=== PATIENT | female | born 1980 | race Caucasian/White ===

== ENCOUNTER → 2016-08-06 | Outpatient (CLI) | payer BC ==
[~2016-08-06] MED LIST: ADVOCARE PO; FAMO10TA43 PO; LACT1CAP72 PO; LORA10CA PO
== END ==
LOC: PREOP 05:49
PROVIDERS: ATTEND Surgery
DX: Z01.818 Encounter for other preprocedural examination (principal); R19.7 Diarrhea, unspecified; Z83.71 Family history of colonic polyps

== ENCOUNTER 2016-08-20 05:39 | Outpatient (CLI) | payer BC ==
[~2016-08-20] VITALS: Ht 172.7 cm; Wt 65.3 kg
[~2016-08-20 05:39] MED LIST changes: -LACT1CAP72 PO
[2016-08-20] MEDS ORDERED: LACT1CAP72 PO (12:26)
== END 2016-08-20 12:28 ==
LOC: PREOP 05:39
PROVIDERS: ATTEND Surgery
DX: Z01.818 Encounter for other preprocedural examination (principal); Z83.71 Family history of colonic polyps

== ENCOUNTER 2016-08-24 07:09 | Day surgery (SDC) | payer BC ==
[~2016-08-24] VITALS: Ht 172.7 cm; Wt 65.3 kg
[~2016-08-24 07:09] MED LIST changes: +LACT1CAP72 PO; +NS IV 500 ML 500 ML IV PRN
[2016-08-24] MEDS ORDERED: FLUMAZENIL (ROMAZICON) 0.1 MG/ML 5 ML VIAL INJ PRN (07:15)
[2016-08-24] MEDS ORDERED: NALOXONE 0.4 MG/ML 1 ML (NARCAN) VIAL IVP PRN (07:15)
[2016-08-24 07:41] VITALS: BP 114/82
--- NOTE | 2016-08-24 08:08 | Pre-Op Note & Conscious Sedat ---
Pre-Operative Progress Note H&P Reviewed The H&P was reviewed, patient examined and no changes noted. Date H&P Reviewed: Aug 24, 2016 Time H&P Reviewed: 08:08 Pre-Op Diagnosis: diarrhea. Family history of colon cancer and polyps Conscious Sedation Pre-Proced ASA Class: 1 Airway Mallampati Classification: ([place] appropriate class) I. II. III, IV Lungs Heart ASA score ASA 1: a normal healthy patient ASA 2: a patient with a mild systemic disease (mid diabetes, controlled hypertension, obesity ASA 3: a patient with a severe systemic disease that limits activity (angina , COPD, prior Myocardial infarction) ASA 4: a patient with an incapacitating disease that is a constant threat to life (CHF, renal failure) ASA 5: a moribund patient not expected to survive 24 hrs. (ruptured aneurysm) ASA 6: a declared brain patient whose organs are being harvested. For emergent operations, add the letter E after the classification Grade 1 Sedation Plan: Discussed options with patient/fam Note The patient is an appropriate candidate to undergo the planned procedure, sedation, and anesthesia. The patient immediately re-assessed prior to indication. NEGIN ARAYA MD Aug 24, 2016 8:08 am
[2016-08-24] MEDS ORDERED: fentaNYL INJECTION 100 MCG/2 ML AMP ONE ×2 (08:22)
[2016-08-24] MEDS ORDERED: MIDAZOLAM 2 MG/2 ML (VERSED) VIAL ONE ×4 (08:22→08:23)
[2016-08-24] MEDS: fentaNYL INJECTION 100 MCG/2 ML AMP IVP PRN ×2 (08:24→08:27)
[2016-08-24] MEDS: MIDAZOLAM 2 MG/2 ML (VERSED) VIAL IVP PRN ×3 (08:25→08:32)
--- NOTE | 2016-08-24 08:47 | Discharge Inst-Simple/Standard ---
Discharge Inst-Standard Discharge Medications New, Converted or Re-Newed RX: Other Patient Instructions/Follow Up Plan of Care/Instructions/FU: repeat colonoscopy in 5 years Activity as Tolerated: Yes Discharge Diet: No Restrictions NEGIN RAAYA MD Aug 24, 2016 8:47 am
--- NOTE | 2016-08-24 08:47 | Progress Note-Post Operative ---
Post-Operative Progess Note Pre-Operative Diagnosis diarrhea. Family history of colon cancer and polyps Post-Operative Diagnosis normal exam Post-Op Procedure Note Date of Procedure: Aug 24, 2016 Name of Procedure: colonoscopy to cecum Anesthesia Type sedation NEGIN ARAYA MD Aug 24, 2016 8:47 am
[2016-08-24 09:10] VITALS: BP 97/62
[2016-08-24 09:40] VITALS: BP 102/70
[2016-08-24 09:50] VITALS: BP 102/70
--- NOTE | 2016-08-24 10:11 | PROCEDURE REPORT ---
PROCEDURE PHYSICIAN: NEGIN ARAYA DATE OF PROCEDURE: 08/24/2016 PROCEDURE: Colonoscopy. SURGEON: Gerardo. INDICATION FOR THE PROCEDURE: This lady came in for colonoscopy to evaluate diarrhea and on the basis of a family history of colon cancer with polyps. Informed consent was obtained after reviewing the procedure in detail. DESCRIPTION OF PROCEDURE: She was placed in left lateral decubitus position and her vital signs were monitored. Conscious sedation was achieved using Versed and fentanyl. Digital rectal examination was unremarkable. The colonoscope was then introduced into the rectum and advanced all the way up to the cecum. The quality of bowel preparation was reasonable. The scope was then withdrawn slowly and the mucosa examined in a systematic fashion. There was no abnormality. She tolerated the procedure well and was taken back to the nursing area in a stable condition. IMPRESSION: 1. Normal colonoscopy. 2. Positive family history. 3. Recommend repeating in 5 years. Job ID: [id number] Dictated Date: 08/24/2016 08:46:23 Sld Educational Aide Date: 08/24/2016 10:07:40 / bobbi STONE
== END 2016-08-24 09:50 | disposition home or self-care (01) ==
LOC: ENDO 07:09
PROVIDERS: ATTEND Surgery
DX: R19.7 Diarrhea, unspecified (principal); Z80.0 Family history of malignant neoplasm of digestive organs

== ENCOUNTER → 2018-11-18 | Outpatient (CLI) | payer BC ==
[~2018-11-18] MED LIST changes: -NS IV 500 ML 500 ML IV PRN
[2018-11-18 15:08] LABS: BAND NEUTROPHILS 3 %; LYMPHOCYTES % (MANUAL) 23 %; MONOCYTES % (MANUAL) 5 %; NEUTROPHILS % (MANUAL) 69 %; RBC MORPH NORMAL
== END ==
LOC: LABNPT 15:04
PROVIDERS: ATTEND Nurse Practitioner Family
DX: D69.6 Thrombocytopenia, unspecified (principal)
CPT/HCPCS: 85007

== ENCOUNTER 2019-02-08 08:43 | Day surgery (SDC) | payer BC ==
[2019-02-08] VITALS (11 sets, daily range): BP systolic 104–146; BP diastolic 72–87
[~2019-02-08] VITALS: Ht 172.7 cm; Wt 65.3 kg
[2019-02-08 09:09] LABS: ABSOLUTE RETIC # 32 10e9/L (24-90); BASOPHILS % (AUTO) 0 % (0-10); EOSINOPHILS # (AUTO) 0.1 10^3/uL (0.0-0.3); EOSINOPHILS % (AUTO) 3 % (0-10); HEMATOCRIT 42 % (35-52); HEMOGLOBIN 13.7 G/DL (11.5-16.0); LYMPHOCYTES # (AUTO) 1.6 X 10^3 (1.0-4.0); LYMPHOCYTES % (AUTO) 36 % (12-44); MEAN CORPUSCULAR HEMOGLOBIN 29 PG (25-34); MEAN CORPUSCULAR HGB CONC 32 G/DL (32-36); MEAN CORPUSCULAR VOLUME 90 FL (80-99); MEAN PLATELET VOLUME 11.7 FL (7.4-10.4); MONOCYTES # (AUTO) 0.4 X 10^3 (0.0-1.0); MONOCYTES % (AUTO) 9 % (0-12); NEUTROPHILS # (AUTO) 2.3 X 10^3 (1.8-7.8); NEUTROPHILS % (AUTO) 53 % (42-75); PLATELET COUNT 52 10^3/uL (130-400); RED CELL DISTRIBUTION WIDTH 12.4 % (10.0-14.5); RETICULOCYTE % 0.68 % (0.50-2.40); WHITE BLOOD COUNT 4.4 10^3/uL (4.3-11.0)
--- OUTSIDE RECORDS SUMMARY | 2019-02-08 09:19 | XMS REPORT | Continuity of Care Document ---
Demographics Preferred Language Unknown Marital Status Unknown Voodoo Affiliation Unknown Race Unknown Ethnic Group Unknown Author Organization Unknown Address Unknown Allergies Active Description Code Type Severity Reaction Onset Reported/Identified Relationship to Patient Clinical Status Yes NO KNOWN DRUG ALLERGIES UNKNOWN NO KNOWN DRUG ALLERG Yes No Known Drug Allergies [id number] Drug Allergy Unknown N/A 05/15/2008 Medications There is no data. Problems Date Dx Coded Attending Type Code Diagnosis Diagnosed By 08/14/2014 QUIANA DODSON, NEGIN Isaac Ot 530.10 08/14/2014 QUIANA DODSON, NEGIN Isaac Ot 531.90 08/14/2014 QUIANA DODSON, NEGIN Isaac Ot 530.10 08/14/2014 QUIANA DODSON, NEGIN Isaac Ot 531.90 09/05/2014 QUIANA DODSON, NEGIN Isaac Ot 530.10 09/05/2014 QUIANA DODSON, NEGIN Isaac Ot 531.90 11/14/2014 QUIANA DODSON, NEGIN Isaac Ot V72.84 11/19/2014 QUIANA DODSON, NEGIN Isaac Ot 530.10 11/19/2014 QUIANA DODSON, NEGIN Isaac Ot 531.90 12/22/2014 CARL GARCIA SECOND VP HR ASSESSMENT Ot 241.0 12/22/2014 CARL GARCIA SECOND VP HR ASSESSMENT Ot 789.00 01/21/2015 QUIANA DODSON, NEGIN Isaac Ot 530.10 01/21/2015 QUIANA DODSON, NEGIN Isaac Ot 535.50 06/30/2016 NEGIN ARAYA MD Ot R53.83 OTHER FATIGUE 07/08/2016 NEGIN ARAYA MD Ot R53.83 OTHER FATIGUE 08/07/2016 NEGIN ARAYA MD Ot R19.7 DIARRHEA, UNSPECIFIED 08/07/2016 NEGIN ARAYA MD Ot Z01.818 ENCOUNTER FOR OTHER PREPROCEDURAL EXAMIN 08/07/2016 NEGIN ARAYA MD Ot Z83.71 FAMILY HISTORY OF COLONIC POLYPS 08/21/2016 NEGIN ARAYA MD Ot Z01.818 ENCOUNTER FOR OTHER PREPROCEDURAL EXAMIN 08/21/2016 NEGIN ARAYA MD Ot Z83.71 FAMILY HISTORY OF COLONIC POLYPS 08/24/2016 QUIANA DODSON, NEGIN Isaac Ot R19.7 DIARRHEA, UNSPECIFIED 08/24/2016 QUIANA DODSON, NEGIN Isaac Ot Z80.0 FAMILY HISTORY OF MALIGNANT NEOPLASM OF 08/25/2016 QUIANA DODSON, NEGIN Isaac Ot R19.7 DIARRHEA, UNSPECIFIED 08/25/2016 QUIANA DODSON, NEGIN Isaac Ot Z80.0 FAMILY HISTORY OF MALIGNANT NEOPLASM OF 08/26/2016 QUIANA DODSON, NEGIN Isaac Ot Z01.818 ENCOUNTER FOR OTHER PREPROCEDURAL EXAMIN 08/26/2016 QUIANA DODSON, NEGIN Isaac Ot Z83.71 FAMILY HISTORY OF COLONIC POLYPS 03/15/2018 LUIS MIGUEL GIBBS W 300.00 ANXIETY STATE, UNSPECIFIED 03/15/2018 LUIS MIGUEL GIBBS W F41.9 ANXIETY DISORDER, UNSPECIFIED 03/15/2018 LUIS MIGUEL GIBBS W 300.00 ANXIETY STATE, UNSPECIFIED 03/15/2018 LUIS MIGUEL GIBBS W F41.9 ANXIETY DISORDER, UNSPECIFIED 03/16/2018 LUIS MIGUEL GIBBS W 300.00 ANXIETY STATE, UNSPECIFIED 03/16/2018 LUIS MIGUEL GIBBS W F41.9 ANXIETY DISORDER, UNSPECIFIED 03/16/2018 LUIS MIGUEL GIBBS W V70.0 ROUTINE GENERAL MEDICAL EXAMINATION AT A HEALTH CARE FACILITY 03/16/2018 LUIS MIGUEL GIBBS W Z00.00 ENCOUNTER FOR GENERAL ADULT MEDICAL EXAMINATION WITHOUT ABNORMAL FINDINGS 03/16/2018 LUIS MIGUEL GIBBS W 300.00 ANXIETY STATE, UNSPECIFIED 03/16/2018 LUIS MIGUEL GIBBS F41.9 ANXIETY DISORDER, UNSPECIFIED 03/16/2018 LUIS MIGUEL GIBBS W V70.0 ROUTINE GENERAL MEDICAL EXAMINATION AT A HEALTH CARE FACILITY 03/16/2018 LUIS MIGUEL GIBBS Z00.00 ENCOUNTER FOR GENERAL ADULT MEDICAL EXAMINATION WITHOUT ABNORMAL FINDINGS 10/20/2018 Sher Newman 473.9 UNSPECIFIED SINUSITIS (CHRONIC) 10/20/2018 Sher Newman J32.9 CHRONIC SINUSITIS, UNSPECIFIED 11/17/2018 LUIS MIGUEL GIBBS W 535.50 UNSPECIFIED GASTRITIS AND GASTRODUODENITIS, WITHOUT MENTION OF HEMORRHAGE 11/17/2018 LUIS MIGUEL GIBBS W 780.60 FEVER, UNSPECIFIED 11/17/2018 LUIS MIGUEL GIBBS K29.70 GASTRITIS, UNSPECIFIED, WITHOUT BLEEDING 11/17/2018 LUIS MIGUEL GIBBS R50.9 FEVER, UNSPECIFIED 11/17/2018 LUIS MIGUEL GIBBS W 535.50 UNSPECIFIED GASTRITIS AND GASTRODUODENITIS, WITHOUT MENTION OF HEMORRHAGE 11/17/2018 LUIS MIGUEL GIBBS W 780.60 FEVER, UNSPECIFIED 11/17/2018 LUIS MIGUEL GIBBS K29.70 GASTRITIS, UNSPECIFIED, WITHOUT BLEEDING 11/17/2018 LUIS MIGUEL GIBBS R50.9 FEVER, UNSPECIFIED 11/22/2018 MADISYN RODRIGUEZ SECOND VP HR ASSESSMENT Ot D69.6 THROMBOCYTOPENIA, UNSPECIFIED 11/30/2018 MADISYN RODRIGUEZ SECOND VP HR ASSESSMENT Ot D69.6 THROMBOCYTOPENIA, UNSPECIFIED 01/05/2019 CALE DODSON, JUSTINA Ot D69.6 THROMBOCYTOPENIA, UNSPECIFIED 02/02/2019 JUSTINA MADSEN MD Ot D69.6 THROMBOCYTOPENIA, UNSPECIFIED Procedures There is no data. Results Test Result Range THYROID STIMULATING HORMONE - 06/29/16 15:58 THYROID STIMULATING HORMONE 1.23 u[iU]/mL 0.35-4.94 EKG - 03/15/18 14:29 EKG Complete Thyroid Stimulating Hormone - 03/16/18 07:47 TSH 1.86 mIU/mL 0.32-5.00 CMV Abs IgG/IgM - 11/17/18 11:50 Cytomegalovirus (CMV) Ab, IgG >10.00 U/mL 0.00-0.59 Cytomegalovirus (CMV) Ab, IgM <30.0 AU/mL 0.0-29.9 EBV Ab VCA, IgG - 11/17/18 11:50 EBV Ab VCA, IgG >600.0 U/mL 0.0-17.9 Peripheral Smear - 11/17/18 11:50 Peripheral smear Sent to [facility] Pathology for review CMV Abs IgG/IgM - 11/17/18 11:50 CYTOMEGALOVIRUS (CMV) AB, IGG >10.00 U/ML 0.00-0.59 CYTOMEGALOVIRUS (CMV) AB, IGM <30.0 AU/ML 0.0-29.9 EBV Ab VCA, IgG - 11/17/18 11:50 EBV AB VCA, IGG >600.0 U/ML 0.0-17.9 Blood manual differential performed detection - 11/17/18 11:50 Blood monocytes/100 leukocytes 5 % NRG Manual blood segmented neutrophils/100 leukocytes 69 % NRG Blood band neutrophils/100 leukocytes 3 % NRG Manual blood lymphocytes/100 leukocytes 23 % NRG Blood erythrocyte morphology finding identification NORMAL NRG EBV Ab VCA, IgM - 11/17/18 11:50 EBV Ab VCA, IgM <36.0 U/mL 0.0-35.9 CBC with Auto Diff - 11/28/18 08:50 Baso% 0.30 % 0.00-2.50 Eos 0.1 K/uL 0.0-0.7 Eos% 1.4 % 0.0-7.0 Hct 40.7 % 36.0-46.0 Hgb 13.4 g/dL 13.0-15.0 Lym 1.50 K/uL 0.60-3.40 Lym% 23.0 % 10.0-50.0 MCH 30.2 pg 27.0-31.0 MCHC 32.9 g/dL 32.0-36.0 MCV 91.9 fL 80.0-97.0 [place]ike% 6.6 % 0.0-12.0 MPV 13.1 fL 7.4-10.0 [place]% 68.7 % 37.0-80.0 Plt 64 K/uL 150-400 RBC 4.43 M/uL 3.60-5.00 RDW 12.3 % 11.6-14.8 WBC 6.53 K/uL 5.00-10.00 [place] 4.49 K/uL 2.00-6.90 Pike 0.4 K/uL 0.0-0.9 Baso 0.0 K/uL 0.0-0.2 Urine Culture - 11/28/18 08:50 PRELIM CULTURE RESULTS 50,000-100,000 Gram Negative Lactose Union Contract Representative TOR / ID to Follow MEDIA PLATED Setup at 14:40 on 11/28/2018 CULTURE SOURCE urine Sensi - 11/28/18 08:50 FINAL CULTURE RESULTS Escherichia coli (Isolate 1) Ampicillin/Sulbactam <=8/4 Ampicillin <=8 Amoxicillin/K Clavulanate <=8/4 Ceftriaxone <=8 Ciprofloxacin <=1 Nitrofurantoin <=32 Gentamicin <=4 Levofloxacin <=2 Trimethoprim/ Sulfamethoxazole <=2/38 Tetracycline <=4 Amikacin <=16 Aztreonam <=8 Ceftazidime <=1 Ceftazidime/K Clavulanate <=0.25 Cephalothin <=8 Cefotaxime <=2 Cefotaxime/K Clavulanate <=0.5 Cefoxitin <=8 Cefazolin <=8 Cefepime <=8 Cefuroxime <=4 Ertapenem <=1 Imipenem <=4 Meropenem <=4 Piperacillin/Tazobactam <=16 Piperacillin <=16 Tigecycline <=2 Tobramycin <=4 Blood CBC with ordered manual differential panel - 02/02/19 08:53 Blood leukocytes automated count (number/volume) 4.3 10*3/uL 4.3-11.0 Blood erythrocytes automated count (number/volume) 4.71 10*6/uL 4.35-5.85 Venous blood hemoglobin measurement (mass/volume) 13.9 g/dL 11.5-16.0 Blood hematocrit (volume fraction) 42 % 35-52 Automated erythrocyte mean corpuscular volume 90 [foz_us] 80-99 Automated erythrocyte mean corpuscular hemoglobin (mass per erythrocyte) 30 pg 25-34 Automated erythrocyte mean corpuscular hemoglobin concentration measurement (mass/volume) 33 g/dL 32-36 Automated erythrocyte distribution width ratio 12.5 % 10.0- 14.5 Automated blood platelet count (count/volume) 64 10*3/uL 130- 400 Automated blood platelet mean volume measurement 11.8 [foz_us] 7.4-10.4 Automated blood neutrophils/100 leukocytes 55 % 42-75 Automated blood lymphocytes/100 leukocytes 32 % 12-44 Blood monocytes/100 leukocytes 10 % NRG Automated blood eosinophils/100 leukocytes 2 % 0-10 Automated blood basophils/100 leukocytes 1 % 0-10 Blood neutrophils automated count (number/volume) 2.4 10*3 1.8-7.8 Blood lymphocytes automated count (number/volume) 1.4 10*3 1.0-4.0 Blood monocytes automated count (number/volume) 0.5 10*3 0.0- 1.0 Automated eosinophil count 0.1 10*3/uL 0.0-0.3 Automated blood basophil count (count/volume) 0.0 10*3/uL 0.0-0.1 Manual blood segmented neutrophils/100 leukocytes 60 % NRG Blood band neutrophils/100 leukocytes 0 % NRG Manual blood lymphocytes/100 leukocytes 26 % NRG Manual eosinophils/100 leukocytes in nose 3 % NRG Manual blood basophils/100 leukocytes 1 % NRG Blood erythrocyte morphology finding identification NORMAL NRG Automated reticulocyte percentage - 02/02/19 08:53 Blood reticulocytes count (number/volume) 40 10*9/L 24-90 Blood reticulocytes/100 erythrocytes 0.85 % 0.50-2.40 Encounters ACCT No. Visit Date/Time Discharge Status Pt. Type Provider Facility Loc./Unit Complaint [id number] 11/24/2018 07:15:00 Document Registration [id number] 11/28/2018 10:40:00 11/28/2018 23:59:00 DIS Outpatient UNLISTEDTAMIKO [id number] 11/25/2018 09:25:00 11/25/2018 23:59:00 DIS Outpatient Peyton Rodriguez [id number] 11/17/2018 13:10:00 11/17/2018 23:59:00 DIS Outpatient LUIS MIGUEL GIBBS [id number] 11/17/2018 11:50:00 11/17/2018 23:59:00 DIS Outpatient Peyton Rodriguez [id number] 10/20/2018 09:03:00 10/20/2018 23:59:00 DIS Outpatient Sher Newman [id number] 03/16/2018 07:45:00 03/16/2018 23:59:00 DIS Outpatient LUIS MIGUEL GIBBS [id number] 03/15/2018 14:25:00 03/15/2018 23:59:00 DIS Outpatient LUIS MIGUEL GIBBS [id number] 02/02/2019 10:50:00 02/02/2019 23:59:59 CLS Preadmit JUSTINA MADSEN MD [facility] SDC THROMBOCYTOPENIA [id number] 02/02/2019 08:27:00 02/02/2019 23:59:59 CLS Outpatient JUSTINA MASDEN MD [facility] ONC [id number] 11/18/2018 15:04:00 11/18/2018 23:59:59 CLS Outpatient MADISYN RODRIGUEZ [facility] LABNPT PERIPHERAL SMEAR [id number] 08/24/2016 07:09:00 08/24/2016 09:50:00 DIS Outpatient NEGIN ARAYA MD [facility] ENDO FAMILY HISTORY POLYPS [id number] 08/20/2016 05:39:00 08/20/2016 12:28:00 DIS Outpatient NEGIN ARAYA MD [facility] PREOP FAMILY HISTORY [id number] 08/06/2016 05:49:00 08/06/2016 23:59:59 CLS Outpatient NEGIN ARAYA MD [facility] PREOP FAMILY HISTORY POLYPS [id number] 06/29/2016 15:46:00 06/29/2016 23:59:59 CLS Outpatient NEGIN ARAYA MD [facility] LAB FATIGUE [id number] 01/21/2015 06:50:00 01/21/2015 09:35:00 DIS Outpatient NEGIN ARAYA MD [facility] [id number] 01/16/2015 07:07:00 01/16/2015 23:59:59 CLS Outpatient NEGIN ARAYA MD [facility] PREOP [id number] 11/20/2014 10:40:00 11/20/2014 23:59:59 CLS Outpatient CARL GARCIA [facility] RAD [id number] 08/13/2014 11:02:00 08/13/2014 23:59:59 CLS Outpatient NEGIN ARAYA MD [facility] [id number] 08/08/2014 05:50:00 08/08/2014 23:59:59 CLS Outpatient NEGIN ARAYA MD [facility] PREOP [id number] 02/28/2013 06:56:00 02/28/2013 11:50:00 DIS Outpatient [id number] 02/23/2013 08:06:00 02/23/2013 23:59:59 CLS Outpatient [id number] 09/21/2014 08:49:00 Document Registration [id number] 09/21/2014 08:49:00 Document Registration [id number] 11/19/2018 06:14:00 Document Registration
[2019-02-08 09:28] LABS: PROTHROMBIN TIME PATIENT 13.2 SEC (12.2-14.7)
[2019-02-08] MEDS ORDERED: NS IV 1000 ML 1,000 ML IV STA (10:50)
[2019-02-08] MEDS ORDERED: LIDOCAINE 1% INJ 20 ML 20 ML VIAL ONE (10:52)
[2019-02-08] MEDS ORDERED: fentaNYL INJECTION 100 MCG/2 ML AMP ONE (10:52)
[2019-02-08] MEDS ORDERED: MIDAZOLAM 2 MG/2 ML (VERSED) VIAL ONE (10:52)
[2019-02-08] MEDS ORDERED: MIDAZOLAM 2 MG/2 ML (VERSED) VIAL IVP ONE (11:00)
[2019-02-08] MEDS ORDERED: fentaNYL INJECTION 100 MCG/2 ML AMP IVP ONE (11:00)
[2019-02-08] MEDS ORDERED: LIDOCAINE 1% INJ 20 ML 20 ML VIAL INJ ONE (11:00)
[2019-02-08 11:04] LABS: BAND NEUTROPHILS 0 %; BASOPHILS % (MANUAL) 2 %; EOSINOPHILS % (MANUAL) 1 %; LYMPHOCYTES % (MANUAL) 37 %; MONOCYTES % (MANUAL) 10 %; NEUTROPHILS % (MANUAL) 50 %; RBC MORPH NORMAL
--- NOTE | 2019-02-08 11:53 | Pre-Op Note & Conscious Sedat ---
Pre-Operative Progress Note H&P Reviewed The H&P was reviewed, patient examined and no changes noted. Date H&P Reviewed: Feb 08, 2019 Time H&P Reviewed: 10:00 Pre-Op Diagnosis: Thrombocytopenia Conscious Sedation Pre-Proced Time 10:00 ASA Score 2 For ASA 3 and 4: Consider anesthesia and medical clearance. Also, for patients with a history of failed moderate sedation consider anesthesia. Airway Lungs Heart ASA score ASA 1: a normal healthy patient ASA 2: a patient with a mild systemic disease (mid diabetes, controlled hypertension, obesity ASA 3: a patient with a severe systemic disease that limits activity (angina, COPD, prior Myocardial infarction) ASA 4: a patient with an incapacitating disease that is a constant threat to life (CHF, renal failure) ASA 5: a moribund patient not expected to survive 24 hrs. (ruptured aneurysm) ASA 6: a declared brain- patient whose organs are being harvested. For emergent operations, add the letter E after the classification Mallampati Classification Grade 2 Sedation Plan Analgesia, Amnesia, Plan communicated to team members, Discussed options with shelton lucero/fam, Discussed risks with patient/fam The patient is an appropriate candidate to undergo the planned procedure, sedation, and anesthesia. The patient immediately re-assessed prior to indication. ZARIE LESTER MD Feb 08, 2019 11:53
[2019-02-08] MEDS ORDERED: HYDROcodone/APAP 5 MG/325 MG (LORTAB) TAB PO PRN (12:00)
--- NOTE | 2019-02-08 13:23 | Diagnostic Imaging Report ---
INDICATION: Thrombocytosis. DETAILS OF PROCEDURE: Patient is brought to the CT suite and placed on table in the prone position. Axial imaging through the pelvis was performed to evaluate appropriate entry site. Procedure was performed utilizing conscious sedation with radiology nursing and constant patient monitoring. Patient was given a total of 50 mcg of fentanyl intravenously and 1 mg of Versed intravenously. Total procedure time is 9 minutes. Skin of the posterior pelvis was prepped and draped in usual sterile fashion. Small amount of 1% lidocaine was utilized for local anesthesia. A bone marrow biopsy needle was advanced and placed its tip adjacent to the posterior cortex of the right iliac bone. Needle was advanced through the cortex utilizing the bone marrow drill. Two bone marrow aspirates were obtained. Bone marrow core was then obtained. Needle was withdrawn. Hemostasis was obtained. Patient tolerated the procedure well and left the department in stable condition. IMPRESSION: Successful CT-guided bone marrow aspiration and biopsy, utilizing conscious sedation. Dictated by: Dictated on workstation # [id number]
== END 2019-02-08 13:50 | disposition home or self-care (01) ==
LOC: SDC 08:43
PROVIDERS: ATTEND Internal Medicine Hematology & Oncology
DX: D69.6 Thrombocytopenia, unspecified (principal); K21.9 Gastro-esophageal reflux disease without esophagitis; Z88.2 Allergy status to sulfonamides
CPT/HCPCS: 36415; 38222; 77012; 85007; 85027; 85045; 85610; 85730; 99156

== ENCOUNTER 2019-02-16 08:29 | Outpatient (RCR) | payer BC ==
[2018-12-21 15:32] LABS: BASOPHILS % (AUTO) 0 % (0-10); EOSINOPHILS # (AUTO) 0.1 10^3/uL (0.0-0.3); EOSINOPHILS % (AUTO) 1 % (0-10); HEMATOCRIT 41 % (35-52); HEMOGLOBIN 13.7 G/DL (11.5-16.0); LYMPHOCYTES # (AUTO) 1.6 X 10^3 (1.0-4.0); LYMPHOCYTES % (AUTO) 30 % (12-44); MEAN CORPUSCULAR HEMOGLOBIN 29 PG (25-34); MEAN CORPUSCULAR HGB CONC 33 G/DL (32-36); MEAN CORPUSCULAR VOLUME 87 FL (80-99); MEAN PLATELET VOLUME 11.4 FL (7.4-10.4); MONOCYTES # (AUTO) 0.5 X 10^3 (0.0-1.0); MONOCYTES % (AUTO) 8 % (0-12); NEUTROPHILS # (AUTO) 3.3 X 10^3 (1.8-7.8); NEUTROPHILS % (AUTO) 61 % (42-75); PLATELET COUNT 72 10^3/uL (130-400); RED CELL DISTRIBUTION WIDTH 12.5 % (10.0-14.5); WHITE BLOOD COUNT 5.5 10^3/uL (4.3-11.0)
[2018-12-21 15:44] LABS: PROTHROMBIN TIME PATIENT 13.5 SEC (12.2-14.7)
[2018-12-23 00:01] LABS: HEPATITIS C ANTIBODY C Non-Reactive (Non-Reactive)
[2019-01-18 09:14] LABS: BASOPHILS % (AUTO) 0 % (0-10); EOSINOPHILS # (AUTO) 0.1 10^3/uL (0.0-0.3); EOSINOPHILS % (AUTO) 2 % (0-10); HEMATOCRIT 40 % (35-52); HEMOGLOBIN 13.2 G/DL (11.5-16.0); LYMPHOCYTES # (AUTO) 1.6 X 10^3 (1.0-4.0); LYMPHOCYTES % (AUTO) 34 % (12-44); MEAN CORPUSCULAR HEMOGLOBIN 30 PG (25-34); MEAN CORPUSCULAR HGB CONC 33 G/DL (32-36); MEAN CORPUSCULAR VOLUME 89 FL (80-99); MEAN PLATELET VOLUME 11.4 FL (7.4-10.4); MONOCYTES # (AUTO) 0.4 X 10^3 (0.0-1.0); MONOCYTES % (AUTO) 9 % (0-12); NEUTROPHILS # (AUTO) 2.6 X 10^3 (1.8-7.8); NEUTROPHILS % (AUTO) 55 % (42-75); PLATELET COUNT 69 10^3/uL (130-400); RED CELL DISTRIBUTION WIDTH 12.7 % (10.0-14.5); WHITE BLOOD COUNT 4.7 10^3/uL (4.3-11.0)
[2019-02-02 09:09] LABS: ABSOLUTE RETIC # 40 10e9/L (24-90); BASOPHILS % (AUTO) 1 % (0-10); EOSINOPHILS # (AUTO) 0.1 10^3/uL (0.0-0.3); EOSINOPHILS % (AUTO) 2 % (0-10); HEMATOCRIT 42 % (35-52); HEMOGLOBIN 13.9 G/DL (11.5-16.0); LYMPHOCYTES # (AUTO) 1.4 X 10^3 (1.0-4.0); LYMPHOCYTES % (AUTO) 32 % (12-44); MEAN CORPUSCULAR HEMOGLOBIN 30 PG (25-34); MEAN CORPUSCULAR HGB CONC 33 G/DL (32-36); MEAN CORPUSCULAR VOLUME 90 FL (80-99); MEAN PLATELET VOLUME 11.8 FL (7.4-10.4); MONOCYTES # (AUTO) 0.5 X 10^3 (0.0-1.0); MONOCYTES % (AUTO) 11 % (0-12); NEUTROPHILS # (AUTO) 2.4 X 10^3 (1.8-7.8); NEUTROPHILS % (AUTO) 55 % (42-75); PLATELET COUNT 64 10^3/uL (130-400); RED CELL DISTRIBUTION WIDTH 12.5 % (10.0-14.5); RETICULOCYTE % 0.85 % (0.50-2.40); WHITE BLOOD COUNT 4.3 10^3/uL (4.3-11.0)
[2019-02-02 10:16] LABS: BAND NEUTROPHILS 0 %; BASOPHILS % (MANUAL) 1 %; EOSINOPHILS % (MANUAL) 3 %; LYMPHOCYTES % (MANUAL) 26 %; MONOCYTES % (MANUAL) 10 %; NEUTROPHILS % (MANUAL) 60 %; RBC MORPH NORMAL
[~2019-02-16 08:29] MED LIST changes: +LIDOCAINE 1% 20 ML (XYLOCAINE) VIAL CANCER CTR ONE
== END 2019-03-21 | disposition home or self-care (01) ==
LOC: ONC 08:29
PROVIDERS: ATTEND Internal Medicine Hematology & Oncology
DX: D69.6 Thrombocytopenia, unspecified (principal)
CPT/HCPCS: 36415; 38222; 80074; 83615; 85007; 85025; 85027; 85045; 85055; 85610; 85730; 86022; 86703; 99213; 99214

== ENCOUNTER 2019-04-27 08:36 | Outpatient (RCR) | payer BC ==
[~2019-04-27 08:36] MED LIST changes: -LIDOCAINE 1% 20 ML (XYLOCAINE) VIAL CANCER CTR ONE
[2019-04-27 08:45] LABS: BASOPHILS % (AUTO) 0 % (0-10); EOSINOPHILS # (AUTO) 0.1 10^3/uL (0.0-0.3); EOSINOPHILS % (AUTO) 2 % (0-10); HEMATOCRIT 41 % (35-52); HEMOGLOBIN 13.8 G/DL (11.5-16.0); LYMPHOCYTES # (AUTO) 1.5 X 10^3 (1.0-4.0); LYMPHOCYTES % (AUTO) 33 % (12-44); MEAN CORPUSCULAR HEMOGLOBIN 30 PG (25-34); MEAN CORPUSCULAR HGB CONC 34 G/DL (32-36); MEAN CORPUSCULAR VOLUME 89 FL (80-99); MEAN PLATELET VOLUME 11.6 FL (7.4-10.4); MONOCYTES # (AUTO) 0.4 X 10^3 (0.0-1.0); MONOCYTES % (AUTO) 9 % (0-12); NEUTROPHILS # (AUTO) 2.5 X 10^3 (1.8-7.8); NEUTROPHILS % (AUTO) 55 % (42-75); PLATELET COUNT 67 10^3/uL (130-400); RED CELL DISTRIBUTION WIDTH 12.3 % (10.0-14.5); WHITE BLOOD COUNT 4.5 10^3/uL (4.3-11.0)
== END 2019-07-26 | disposition home or self-care (01) ==
LOC: ONC 08:36
PROVIDERS: ATTEND Internal Medicine Hematology & Oncology
DX: D69.3 Immune thrombocytopenic purpura (principal); D69.6 Thrombocytopenia, unspecified
CPT/HCPCS: 36415; 85025; 99213

== ENCOUNTER 2019-08-31 13:08 | Outpatient (RCR) | payer BC ==
[2019-08-03 08:36] LABS: BASOPHILS % (AUTO) 1 % (0-10); EOSINOPHILS # (AUTO) 0.1 10^3/uL (0.0-0.3); EOSINOPHILS % (AUTO) 2 % (0-10); HEMATOCRIT 41 % (35-52); HEMOGLOBIN 13.7 G/DL (11.5-16.0); LYMPHOCYTES # (AUTO) 1.6 X 10^3 (1.0-4.0); LYMPHOCYTES % (AUTO) 39 % (12-44); MEAN CORPUSCULAR HEMOGLOBIN 29 PG (25-34); MEAN CORPUSCULAR HGB CONC 33 G/DL (32-36); MEAN CORPUSCULAR VOLUME 88 FL (80-99); MEAN PLATELET VOLUME 12.4 FL (7.4-10.4); MONOCYTES # (AUTO) 0.4 X 10^3 (0.0-1.0); MONOCYTES % (AUTO) 8 % (0-12); NEUTROPHILS # (AUTO) 2.1 X 10^3 (1.8-7.8); NEUTROPHILS % (AUTO) 50 % (42-75); PLATELET COUNT 43 10^3/uL (130-400); RED CELL DISTRIBUTION WIDTH 12.4 % (10.0-14.5); WHITE BLOOD COUNT 4.2 10^3/uL (4.3-11.0)
[2019-08-31 13:23] LABS: BASOPHILS % (AUTO) 0 % (0-10); EOSINOPHILS # (AUTO) 0.1 10^3/uL (0.0-0.3); EOSINOPHILS % (AUTO) 2 % (0-10); HEMATOCRIT 41 % (35-52); HEMOGLOBIN 13.6 G/DL (11.5-16.0); LYMPHOCYTES # (AUTO) 1.7 X 10^3 (1.0-4.0); LYMPHOCYTES % (AUTO) 38 % (12-44); MEAN CORPUSCULAR HEMOGLOBIN 29 PG (25-34); MEAN CORPUSCULAR HGB CONC 33 G/DL (32-36); MEAN CORPUSCULAR VOLUME 89 FL (80-99); MEAN PLATELET VOLUME 12.5 FL (7.4-10.4); MONOCYTES # (AUTO) 0.5 X 10^3 (0.0-1.0); MONOCYTES % (AUTO) 11 % (0-12); NEUTROPHILS # (AUTO) 2.3 X 10^3 (1.8-7.8); NEUTROPHILS % (AUTO) 49 % (42-75); RED CELL DISTRIBUTION WIDTH 12.5 % (10.0-14.5); WHITE BLOOD COUNT 4.6 10^3/uL (4.3-11.0)
[2019-08-31 13:26] LABS: PLATELET COUNT 34 10^3/uL (130-400)
== END 2019-11-01 | disposition home or self-care (01) ==
LOC: ONC 13:08
PROVIDERS: ATTEND Internal Medicine Hematology & Oncology
DX: D69.3 Immune thrombocytopenic purpura (principal); D69.6 Thrombocytopenia, unspecified
CPT/HCPCS: 85025; 99213

== ENCOUNTER 2019-11-29 09:00 | Outpatient (RCR) | payer BC ==
[2019-11-29 09:10] LABS: BASOPHILS % (AUTO) 0 % (0-10); EOSINOPHILS # (AUTO) 0.1 10^3/uL (0.0-0.3); EOSINOPHILS % (AUTO) 3 % (0-10); HEMATOCRIT 41 % (35-52); HEMOGLOBIN 13.5 G/DL (11.5-16.0); LYMPHOCYTES # (AUTO) 1.5 X 10^3 (1.0-4.0); LYMPHOCYTES % (AUTO) 30 % (12-44); MEAN CORPUSCULAR HEMOGLOBIN 29 PG (25-34); MEAN CORPUSCULAR HGB CONC 33 G/DL (32-36); MEAN CORPUSCULAR VOLUME 89 FL (80-99); MEAN PLATELET VOLUME 11.6 FL (7.4-10.4); MONOCYTES # (AUTO) 0.4 X 10^3 (0.0-1.0); MONOCYTES % (AUTO) 9 % (0-12); NEUTROPHILS % (AUTO) 58 % (42-75); PLATELET COUNT 79 10^3/uL (130-400); RED CELL DISTRIBUTION WIDTH 12.6 % (10.0-14.5); WHITE BLOOD COUNT 5.1 10^3/uL (4.3-11.0)
== END 2020-02-20 15:42 | disposition home or self-care (01) ==
LOC: ONC 09:00
PROVIDERS: ATTEND Internal Medicine Hematology & Oncology
DX: D69.3 Immune thrombocytopenic purpura (principal); D69.6 Thrombocytopenia, unspecified; Z90.89 Acquired absence of other organs
CPT/HCPCS: 85025; G0463; 99213

== ENCOUNTER → 2020-02-21 | Outpatient (CLI) | payer BC ==
[2020-02-21 09:12] LABS: BASOPHILS % (AUTO) 0 % (0-10); EOSINOPHILS # (AUTO) 0.1 10^3/uL (0.0-0.3); EOSINOPHILS % (AUTO) 2 % (0-10); HEMATOCRIT 42 % (35-52); HEMOGLOBIN 13.8 G/DL (11.5-16.0); LYMPHOCYTES # (AUTO) 1.9 X 10^3 (1.0-4.0); LYMPHOCYTES % (AUTO) 33 % (12-44); MEAN CORPUSCULAR HEMOGLOBIN 29 PG (25-34); MEAN CORPUSCULAR HGB CONC 33 G/DL (32-36); MEAN CORPUSCULAR VOLUME 88 FL (80-99); MEAN PLATELET VOLUME 11.6 FL (7.4-10.4); MONOCYTES # (AUTO) 0.5 X 10^3 (0.0-1.0); MONOCYTES % (AUTO) 9 % (0-12); NEUTROPHILS # (AUTO) 3.2 X 10^3 (1.8-7.8); NEUTROPHILS % (AUTO) 55 % (42-75); PLATELET COUNT 66 10^3/uL (130-400); RED CELL DISTRIBUTION WIDTH 12.8 % (10.0-14.5); WHITE BLOOD COUNT 5.8 10^3/uL (4.3-11.0)
== END ==
LOC: ONC 02-20 15:45
PROVIDERS: ATTEND Internal Medicine Hematology & Oncology
DX: D69.3 Immune thrombocytopenic purpura (principal); D69.6 Thrombocytopenia, unspecified; Z90.89 Acquired absence of other organs
CPT/HCPCS: 85025; 99213

== ENCOUNTER → 2020-05-14 | Outpatient (CLI) | payer BC ==
[2020-05-14 09:13] LABS: BASOPHILS % (AUTO) 1 % (0-10); MEAN PLATELET VOLUME 11.6 fL (9.0-12.2)
[2020-05-14 09:15] LABS: EOSINOPHILS # (AUTO) 0.2 10^3/uL (0.0-0.3); EOSINOPHILS % (AUTO) 3 % (0-10); HEMATOCRIT 42 % (35-52); HEMOGLOBIN 14.1 g/dL (11.5-16.0); LYMPHOCYTES # (AUTO) 1.8 10^3/uL (1.0-4.0); LYMPHOCYTES % (AUTO) 31 % (12-44); MEAN CORPUSCULAR HEMOGLOBIN 30 pg (25-34); MEAN CORPUSCULAR HGB CONC 34 g/dL (32-36); MEAN CORPUSCULAR VOLUME 89 fL (80-99); MONOCYTES # (AUTO) 0.5 10^3/uL (0.0-1.0); MONOCYTES % (AUTO) 8 % (0-12); NEUTROPHILS # (AUTO) 3.2 10^3/uL (1.8-7.8); NEUTROPHILS % (AUTO) 57 % (42-75); PLATELET COUNT 68 10^3/uL (130-400); WHITE BLOOD COUNT 5.6 10^3/uL (4.3-11.0)
== END ==
LOC: ONC 09:03
PROVIDERS: ATTEND Internal Medicine Hematology & Oncology
DX: D69.3 Immune thrombocytopenic purpura (principal); D69.6 Thrombocytopenia, unspecified; Z90.89 Acquired absence of other organs
CPT/HCPCS: 85025; G0463; 99213

== ENCOUNTER → 2020-08-22 | Outpatient (CLI) | payer BC ==
[2020-08-22 09:45] LABS: BASOPHILS % (AUTO) 0 % (0-10); EOSINOPHILS # (AUTO) 0.1 10^3/uL (0.0-0.3); EOSINOPHILS % (AUTO) 2 % (0-10); HEMATOCRIT 42 % (35-52); HEMOGLOBIN 13.9 g/dL (11.5-16.0); LYMPHOCYTES # (AUTO) 2.8 10^3/uL (1.0-4.0); LYMPHOCYTES % (AUTO) 34 % (12-44); MEAN CORPUSCULAR HEMOGLOBIN 30 pg (25-34); MEAN CORPUSCULAR HGB CONC 33 g/dL (32-36); MEAN CORPUSCULAR VOLUME 91 fL (80-99); MEAN PLATELET VOLUME 10.6 fL (9.0-12.2); MONOCYTES # (AUTO) 0.6 10^3/uL (0.0-1.0); MONOCYTES % (AUTO) 8 % (0-12); NEUTROPHILS # (AUTO) 4.6 10^3/uL (1.8-7.8); NEUTROPHILS % (AUTO) 56 % (42-75); PLATELET COUNT 242 10^3/uL (130-400); WHITE BLOOD COUNT 8.2 10^3/uL (4.3-11.0)
[2020-08-22 10:07] LABS: ALBUMIN 4.1 GM/DL (3.2-4.5); BILIRUBIN,TOTAL 0.6 MG/DL (0.1-1.0); CALCIUM 9.2 MG/DL (8.5-10.1); CREATININE SERUM 1.13 MG/DL (0.60-1.30); POTASSIUM 3.8 MMOL/L (3.6-5.0); TOTAL PROTEIN 6.6 GM/DL (6.4-8.2)
== END ==
LOC: ONC 09:37
PROVIDERS: ATTEND Internal Medicine Hematology & Oncology
DX: D69.3 Immune thrombocytopenic purpura (principal); K21.9 Gastro-esophageal reflux disease without esophagitis
CPT/HCPCS: 80053; 85025; G0463; 99213

== ENCOUNTER → 2020-12-10 | Outpatient (CLI) | payer BC ==
--- NOTE | 2020-12-10 12:29 | Diagnostic Imaging Report ---
INDICATION: THYROID NODULE (LEFT) TECHNIQUE: Grayscale sonographic images of the thyroid gland. CORRELATION STUDY: 11/20/2014 FINDINGS: RIGHT LOBE: 4.5 x 1.2 x 1.2 cm. There is normal echotexture about the right lobe. Previously noted small nodule inferior pole is not visualized at follow-up. LEFT LOBE: 4.3 x 1.0 x 1.1 cm. At the superior pole is a somewhat ill-defined iso to slightly hyperechoic nodule. This measures 0.7 x 0.5 x 0.4 cm (previously 0.6 x 0.4 x 0.4 cm). No internal vascularity. This has become perhaps slightly more hyperechoic compared to prior. Isthmus appears unremarkable. IMPRESSION: Subcentimeter left thyroid nodule present. No definitive adverse interval change. TR 3 (Normal gland size: 4-5 x 2 x 2 cm) Dictated by: Dictated on workstation # [id number]
== END ==
LOC: RAD 10:26
PROVIDERS: ATTEND Surgery
DX: E04.1 Nontoxic single thyroid nodule (principal)
CPT/HCPCS: 76536